=== PATIENT | female | born 1985 | race Caucasian/White ===

== ENCOUNTER 2019-02-09 13:58 | Inpatient (IN) | payer MEDICAID ==
[2019-02-09] MEDS ORDERED: MISOPROSTOL 200 MCG TAB PR (15:30)
[2019-02-09] MEDS ORDERED: OXYTOCIN 30 UNITS/LR 500 ML IV (15:30)
[2019-02-09] MEDS ORDERED: METHYLERGONOVINE 0.2 MG INJ IM (15:30)
[2019-02-09] MEDS ORDERED: LIDOCAINE 1% (MPF) 30 ML INJ INJ (15:30)
[2019-02-09] MEDS ORDERED: CARBOPROST 250 MCG INJ IM (15:30)
[2019-02-09 15:56] LABS: ADD MAN DIFF? NO
[2019-02-09 15:59] LABS: BASOPHILS % 0.3 % (0.0-2.0); EOSINOPHILS # 0.1 10^3/ul (0.0-0.5); EOSINOPHILS % 0.7 % (0.0-7.0); HEMOGLOBIN 13.4 g/dl (12.0-16.0); LYMPHOCYTES # 2.2 10^3/ul (0.8-2.9); LYMPHOCYTES % 18.6 % (15.0-51.0); MEAN CORPUSCULAR HGB CONC 33.5 g/dl (32.0-37.0); MEAN CORPUSCULAR VOLUME 89.5 fl (82.0-101.0); MEAN PLATELET VOLUME 10.4 fl (7.4-10.4); MONOCYTE # 0.7 10^3/ul (0.3-0.9); MONOCYTES % 6.1 % (0.0-11.0); NEUTROPHIL # 8.6 10^3/ul (1.6-7.5); NEUTROPHILS % 73.3 % (39.0-77.0); PLATELET COUNT 247 10^3/UL (140-415); RED BLOOD COUNT 4.47 10^6/ul (4.20-5.40); RED CELL DISTRIBUTION WIDTH 13.8 % (11.5-14.5)
[2019-02-09 15:59] LABS: WHITE BLOOD COUNT 11.8 10^3/ul (4.8-10.8)
[2019-02-09 16:16] LABS: GLUCOSE 96 mg/dl (70-220)
[2019-02-09 16:20] LABS: INR 0.82; PARTIAL THROMBOPLASTIN TIME 26.2 Sec (23.0-35.0); PROTIME 11.4 Sec (11.9-14.9); PT RATIO 0.9
[2019-02-09] MEDS: AMPICILLIN 2 GM/NS (PMX) 100 ML IVPB (18:39)
[2019-02-09] MEDS: LACTATED RINGER'S 1,000 ML IV ×2 (18:39→23:55)
[2019-02-09] MEDS: MISOPROSTOL 50 MCG CAPSULE PO ×2 (19:04→22:56)
[2019-02-09 22:04] LABS: RAPID PLASMA REAGIN NONREACTIVE (NR)
[2019-02-09] MEDS: AMPICILLIN 1 GM/NS (PMX) 50 ML IVPB (22:56)
[2019-02-10] MEDS: FAMOTIDINE 20 MG INJ IV (01:21)
[2019-02-10] MEDS: AMPICILLIN 1 GM/NS (PMX) 50 ML IVPB ×5 (02:58→19:24)
[2019-02-10] MEDS: MISOPROSTOL 50 MCG CAPSULE PO (03:08)
[2019-02-10] MEDS: LACTATED RINGER'S 1,000 ML IV ×2 (08:57→11:12)
[2019-02-10] MEDS ORDERED: FENTAnyl 2MCG/ML-ROPIV 0.2% 100 ML (09:36)
[2019-02-10] MEDS ORDERED: NALOXONE (0.4 MG/ML) INJ IV (10:00)
[2019-02-10] MEDS ORDERED: DIPHENHYDRAMINE 50 MG INJ IV (10:00)
[2019-02-10] MEDS: FENTAnyl 2MCG/ML-ROPIV 0.2% 100 ML BAG EPI (17:27)
[2019-02-10] MEDS: ONDANSETRON 4 MG INJ IV (18:27)
[2019-02-10] MEDS: CEFAZOLIN 2 GM/50 ML (PMX) 50 ML IVPB (22:56)
[2019-02-10] MEDS ORDERED: CARBOPROST 250 MCG INJ IM (23:00)
[2019-02-10] MEDS ORDERED: OXYTOCIN 30 UNITS/LR 500 ML IV (23:00)
[2019-02-10] MEDS ORDERED: MISOPROSTOL 200 MCG TAB PR (23:00)
[2019-02-10] MEDS ORDERED: DIBUCAINE 1% 30 GM OINT TOP (23:00)
[2019-02-10] MEDS ORDERED: ACETAMINOPHEN 325 MG TAB PO ×2 (23:00)
[2019-02-10] MEDS ORDERED: METHYLERGONOVINE 0.2 MG INJ IM (23:00)
[2019-02-10] MEDS ORDERED: ONDANSETRON 4 MG INJ IV (23:00)
[2019-02-11] MEDS: IBUPROFEN 600 MG TAB PO ×3 (00:08→14:55)
[2019-02-11] MEDS: OXYTOCIN 30 UNITS/LR 500 ML IV ×3 (00:21→03:18)
[2019-02-11] MEDS: MINERAL OIL LIGHT 10 ML VIAL TOP (01:41)
[2019-02-11] MEDS: MISOPROSTOL 50 MCG CAPSULE PO (01:41)
[2019-02-11] MEDS: LACTATED RINGER'S 1,000 ML IV* ×2 (01:42→07:15)
[2019-02-11] MEDS: LACTATED RINGER'S 1,000 ML IV (01:42)
[2019-02-11] MEDS: BENZOCAINE 20% 56 ML SPRAY TOP (03:13)
[2019-02-11] MEDS: LANOLIN HPA 1 PKT TOP (03:13)
[2019-02-11 05:08] LABS: ADD MAN DIFF? NO
[2019-02-11 05:21] LABS: WHITE BLOOD COUNT 17.7 10^3/ul (4.8-10.8)
[2019-02-11 05:21] LABS: BASOPHILS % 0.2 % (0.0-2.0); EOSINOPHILS # 0.1 10^3/ul (0.0-0.5); EOSINOPHILS % 0.3 % (0.0-7.0); HEMATOCRIT 35.2 % (37.0-47.0); HEMOGLOBIN 11.7 g/dl (12.0-16.0); LYMPHOCYTES # 1.9 10^3/ul (0.8-2.9); LYMPHOCYTES % 10.9 % (15.0-51.0); MEAN CORPUSCULAR HEMOGLOBIN 30.1 pg (29.0-33.0); MEAN CORPUSCULAR HGB CONC 33.2 g/dl (32.0-37.0); MEAN CORPUSCULAR VOLUME 90.5 fl (82.0-101.0); MEAN PLATELET VOLUME 10.6 fl (7.4-10.4); MONOCYTE # 1.2 10^3/ul (0.3-0.9); MONOCYTES % 6.9 % (0.0-11.0); NEUTROPHIL # 14.3 10^3/ul (1.6-7.5); NEUTROPHILS % 80.8 % (39.0-77.0); PLATELET COUNT 228 10^3/UL (140-415); RED BLOOD COUNT 3.89 10^6/ul (4.20-5.40); RED CELL DISTRIBUTION WIDTH 14.1 % (11.5-14.5)
[2019-02-12] MEDS: IBUPROFEN 600 MG TAB PO (04:43)
[2019-02-12 04:48] LABS: ADD MAN DIFF? NO
[2019-02-12 05:03] LABS: WHITE BLOOD COUNT 13.9 10^3/ul (4.8-10.8)
[2019-02-12 05:03] LABS: BASOPHILS % 0.1 % (0.0-2.0); EOSINOPHILS # 0.2 10^3/ul (0.0-0.5); EOSINOPHILS % 1.5 % (0.0-7.0); HEMATOCRIT 33.4 % (37.0-47.0); LYMPHOCYTES # 3.3 10^3/ul (0.8-2.9); LYMPHOCYTES % 23.6 % (15.0-51.0); MEAN CORPUSCULAR HEMOGLOBIN 30.1 pg (29.0-33.0); MEAN CORPUSCULAR HGB CONC 32.9 g/dl (32.0-37.0); MEAN CORPUSCULAR VOLUME 91.5 fl (82.0-101.0); MEAN PLATELET VOLUME 10.7 fl (7.4-10.4); MONOCYTE # 0.9 10^3/ul (0.3-0.9); MONOCYTES % 6.6 % (0.0-11.0); NEUTROPHIL # 9.3 10^3/ul (1.6-7.5); NEUTROPHILS % 66.9 % (39.0-77.0); PLATELET COUNT 221 10^3/UL (140-415); RED BLOOD COUNT 3.65 10^6/ul (4.20-5.40); RED CELL DISTRIBUTION WIDTH 14.3 % (11.5-14.5)
[2019-02-12] MEDS: MAGNESIUM HYDROXIDE 30ML CUP PO (09:56)
[2019-02-12] MEDS: WITCH HAZEL/GLYCERIN PAD PR (09:56)
[2019-02-12] MEDS: SENNA/DOCUSATE NA (8.6MG/50MG) TAB PO (09:56)
== END 2019-02-12 16:20 | disposition home or self-care (01) | DRG 807 ==
LOC: OBT 13:58 → L-D 13:59 → OBT 13:59 → MS1 02-10 23:24 → L-D 14:45
PROVIDERS: Obstetrics & Gynecology
PROC: 10E0XZZ Delivery of Products of Conception, External Approach (ICD-10-PCS; principal; 2019-02-10)
PROC: 0W8NXZZ Division of Female Perineum, External Approach (ICD-10-PCS; 2019-02-10)
DX: O24.420 Gestational diabetes mellitus in childbirth, diet controlled (principal); O36.8130 Decreased fetal movements, third trimester, not applicable or unspecified; Z3A.40 40 weeks gestation of pregnancy; Z37.0 Single live birth
CPT/HCPCS: 62322; 76815; 82947; 82962; 85025; 85610; 85730; 86592; 86850; 86900; 86901; 88307; 99464